=== PATIENT | male | born 1960 | race Caucasian/White ===

== ENCOUNTER 2018-10-14 11:30 | Emergency (ER) | payer MEDICARE, MEDICAID ==
--- NOTE | 2018-10-14 12:39 | EDM.PDOC ---
ED HPI GENERAL MEDICAL PROBLEM - General Chief Complaint: Skin Complaint Time Seen by Provider: 10/14/18 11:48 Source of Information: Reports: Patient, RN Notes Reviewed History Limitations: Reports: No Limitations - History of Present Illness INITIAL COMMENTS - FREE TEXT/NARRATIVE: 58-year-old gentleman presents to emergency department today with complaint of rash, he states the rash is developed over the last 24 hours it is not painful quite itchy it is predominantly on the left side of his face down into the neck gets on the left shoulder and also on both sides posterior neck - Related Data Allergies Allergy/AdvReac Type Severity Reaction Status Date / Time No Known Allergies Allergy Verified 10/14/18 11:57 Home Meds: Home Meds predniSONE [Prednisone] 20 mg PO DAILY #7 tablet 10/14/18 [Rx] Past Medical History HEENT History: Reports: Impaired Vision Psychiatric History: Reports: Anxiety, Depression - Past Surgical History Head Surgeries/Procedures: Reports: None HEENT Surgical History: Reports: None Dermatological Surgical History: Reports: None Social & Family History - Tobacco Use Smoking Status *Q: Never Smoker Second Hand Smoke Exposure: No - Caffeine Use Caffeine Use: Reports: Coffee, Soda - Recreational Drug Use Recreational Drug Use: No ED ROS GENERAL - Review of Systems Review Of Systems: See Below Constitutional: Reports: No Symptoms Respiratory: Reports: No Symptoms Skin: Reports: Rash ED EXAM, SKIN/RASH Exam: See Below Text/Narrative:: Examination the rash large homogeneous patches back of the neck both sides left cheek left shoulder is there is a linear line Exam Limited By: No Limitations General Appearance: Alert, WD/WN, No Apparent Distress Course - Vital Signs Last Recorded V/S: Last Vital Signs Temp 96.5 F 10/14/18 12:04 Pulse 73 10/14/18 12:04 Resp 15 10/14/18 12:04 BP 154/111 H 10/14/18 12:04 Pulse Ox 96 10/14/18 12:04 Departure - Departure Time of Disposition: 12:38 Disposition: Home, Self-Care 01 Condition: Fair Clinical Impression: Contact dermatitis Qualifiers: Contact dermatitis type: irritant Contact dermatitis trigger: unspecified trigger Qualified Code(s): L24.9 - Irritant contact dermatitis, unspecified cause - Discharge Information Prescriptions: predniSONE [Prednisone] 20 mg PO DAILY #7 tablet Referrals: PCP,None [Primary Care Provider] - Additional Instructions: Take full course of prednisone, your medications have been faxed to [facility], use Benadryl as needed for itching symptoms, Please followup with your primary care provider in 3-5 days if not better, please call return to the emergency department with worsening of symptoms. - Assessment/Plan Plan: Assessment Acuity = acute Site and laterality = contact dermatitis Etiology = [unknown etiology Manifestations = pruritus Location of injury = Home Lab values = none Plan Elected to treat empirically prednisone 20 mg once day for 7 days and Benadryl follow-up primary care in 3-5 days if no improvement This note was dictated using [employer] voice recognition software please call with any questions on syntax or grammar.
== END 2018-10-14 12:56 | disposition home or self-care (01) ==
LOC: JP.ED 11:30
DX: L24.9 Irritant contact dermatitis, unspecified cause (principal); Z79.899 Other long term (current) drug therapy
CPT/HCPCS: 99282; 99283